=== PATIENT | male | born 2000 | race Caucasian/White ===

== ENCOUNTER 2020-07-28 09:53 | Day surgery (SDC) | payer BC, SELFPAY ==
[~2020-07-28] VITALS: Ht 185.4 cm; Wt 93.0 kg
[2020-07-28] MEDS ORDERED: NS IRRIG SOLN 1000 ML IR ONE (12:08)
[2020-07-28] MEDS ORDERED: LIDOCAINE 2%, 20 ML MDV INJ ONE (12:08)
[2020-07-28] MEDS ORDERED: fentaNYL CITRATE/PF 100 MCG/2 ML AMP IVP ONE (12:08)
[2020-07-28] MEDS ORDERED: LR 1,000 ML IV.SOLN IV ONE (12:08)
[2020-07-28] MEDS ORDERED: DEXAMETHASONE SOD PHOSPHATE 4 MG/ML VIAL IVP ONE (12:08)
[2020-07-28] MEDS ORDERED: LIDOCAINE/EPI 1% 1:100000 20 ML VIAL INJ ONE (12:08)
[2020-07-28] MEDS ORDERED: PROPOFOL 200MG/ 20ML VIAL (DIPRIVAN) IV ONE (12:08)
[2020-07-28] MEDS ORDERED: SUGAMMADEX SODIUM 200 MG/2 ML VIAL IV ONE (12:08)
[2020-07-28] MEDS ORDERED: ROCURONIUM BROMIDE 10 MG/ML (ZEMURON) IV ONE (12:08)
[2020-07-28] MEDS ORDERED: ONDANSETRON HCL 4 MG/2 ML VIAL IVP ONE (12:08)
[2020-07-28] MEDS ORDERED: SUCCINYLCHOLINE CHLORIDE 20 MG/ML(QUELICIN) IVP ONE (12:08)
[2020-07-28] MEDS ORDERED: ISOFLURANE 15 MIN GAS INH ONE (12:08)
[2020-07-28] MEDS ORDERED: MIDAZOLAM HCL 5 MG/5 ML VIAL IVP ONE (12:08)
[2020-07-28] MEDS ORDERED: MUPIROCIN 2% TOPICAL OINTMENT 22 GM TP ONE (12:08)
[2020-07-28] MEDS ORDERED: KETOROLAC TROMETHAMINE 30 MG VIAL IVP ONE (12:08)
[2020-07-28] MEDS ORDERED: LR 1,000 ML IV SCH (13:15)
[2020-07-28] MEDS ORDERED: LABETALOL 100 MG/ 20ML VIAL IVP PRN (13:15)
[2020-07-28] MEDS ORDERED: ONDANSETRON HCL 4 MG/2 ML VIAL IVP PRN (13:15)
[2020-07-28] MEDS ORDERED: MEPERIDINE HCL/PF 25 MG/ML DISP.SYRIN IVP PRN (13:15)
[2020-07-28] MEDS ORDERED: HYDROmorphone 1 MG INJ. 1 MG/ML AMPUL IVP PRN ×2 (13:15)
[2020-07-28] MEDS ORDERED: MIDAZOLAM HCL 2 MG/2 ML VIAL (VERSED) IVP PRN (13:15)
[2020-07-28] MEDS ORDERED: hydrALAZINE HCL 20 MG/ML VIAL IVP PRN (13:15)
[2020-07-28] MEDS ORDERED: METOCLOPRAMIDE HCL 10 MG/2 ML VIAL IVP PRN (13:15)
[2020-07-28] MEDS ORDERED: METOCLOPRAMIDE HCL 10 MG/2 ML VIAL ONE (15:09)
[2020-07-28 18:21] VITALS: BP_SYST 120
== END 2020-07-28 18:00 | disposition home or self-care (01) ==
LOC: SDS 09:53 → SMU 09:54 → SDS 18:00
PROVIDERS: ATTEND Otolaryngology
DX: J34.89 Other specified disorders of nose and nasal sinuses (principal); J34.2 Deviated nasal septum; J35.2 Hypertrophy of adenoids; Z20.828 Contact with and (suspected) exposure to other viral communicable diseases
CPT/HCPCS: 30140; 30520; 42831; 88304; 88311; J2765; J3465; J7120; U0003; C9399; J0330; J1100; J1885; J2001; J2250; J2405; J2704; J3010

== ENCOUNTER 2021-04-10 10:00 | Outpatient (CLI) | payer BC, SELFPAY ==
[~2021-04-10] VITALS: Ht 185.4 cm; Wt 81.6 kg
== END 2021-04-10 11:00 | disposition home or self-care (01) ==
LOC: SLB 10:00 → EDSTATUS 04-13 07:30
PROVIDERS: ATTEND Otolaryngology
DX: Z01.812 Encounter for preprocedural laboratory examination (principal); J35.1 Hypertrophy of tonsils; Z20.822 Contact with and (suspected) exposure to COVID-19
CPT/HCPCS: U0003

== ENCOUNTER 2021-06-22 08:09 | Day surgery (SDC) | payer BC, SELFPAY ==
[~2021-06-22] VITALS: Ht 182.9 cm; Wt 81.6 kg
[2021-06-22] MEDS ORDERED: ONDANSETRON HCL 4 MG/2 ML VIAL IVP ONE (09:08)
[2021-06-22] MEDS ORDERED: fentaNYL CITRATE 250 MCG/5 ML AMP IV ONE (09:08)
[2021-06-22] MEDS ORDERED: LIDOCAINE 2%, 20 ML MDV IM ONE (09:08)
[2021-06-22] MEDS ORDERED: DEXAMETHASONE SOD PHOSPHATE 4 MG/ML VIAL IVP ONE (09:08)
[2021-06-22] MEDS ORDERED: SUGAMMADEX SODIUM 200 MG/2 ML VIAL IV ONE (09:08)
[2021-06-22] MEDS ORDERED: ROCURONIUM BROMIDE 10 MG/ML (ZEMURON) IV ONE (09:08)
[2021-06-22] MEDS ORDERED: MIDAZOLAM HCL 5 MG/5 ML VIAL IVP ONE (09:08)
[2021-06-22] MEDS ORDERED: PROPOFOL 200MG/ 20ML VIAL (DIPRIVAN) IV ONE (09:08)
[2021-06-22] MEDS ORDERED: SEVOFLURANE 15 MIN GAS INH ONE (09:08)
[2021-06-22] MEDS ORDERED: ACETAMINOPHEN I.V. 1000 MG 100 ML IV ONE (09:45)
[2021-06-22] MEDS ORDERED: ONDANSETRON HCL 4 MG/2 ML VIAL IVP PRN (10:00)
[2021-06-22] MEDS ORDERED: METOCLOPRAMIDE HCL 10 MG/2 ML VIAL IVP PRN (10:00)
[2021-06-22] MEDS ORDERED: MEPERIDINE HCL/PF 25 MG/ML DISP.SYRIN IVP PRN (10:00)
[2021-06-22] MEDS ORDERED: LR 1,000 ML IV SCH (10:00)
[2021-06-22] MEDS ORDERED: HYDROmorphone 1 MG/ML INJ. CARTRIDGE IVP PRN ×2 (10:00)
[2021-06-22] MEDS ORDERED: MIDAZOLAM HCL 2 MG/2 ML VIAL (VERSED) IVP PRN (10:00)
[2021-06-22 13:47] VITALS: BP_SYST 118
== END 2021-06-22 13:46 | disposition home or self-care (01) ==
LOC: SDS 08:09 → SMU 08:13 → SDS 13:46
PROVIDERS: ATTEND Otolaryngology
DX: J35.1 Hypertrophy of tonsils (principal); G47.33 Obstructive sleep apnea (adult) (pediatric); E78.00 Pure hypercholesterolemia, unspecified; Z79.899 Other long term (current) drug therapy; Z20.822 Contact with and (suspected) exposure to COVID-19
CPT/HCPCS: 42826; 88304; C9399; J0131; J1100; J2001; J2250; J2405; J2704; J3010; U0003; 88305